=== PATIENT | female | born 1940 | race Caucasian/White ===

== ENCOUNTER 2016-11-07 09:02 | Emergency (ER) | payer MEDICARE, OTHER ==
[~2016-11-07] VITALS: Ht 167.6 cm; Wt 65.8 kg
[~2016-11-07 09:02] MED LIST changes: -IBUPROFEN400 MG ORAL
[2016-11-07] MEDS ORDERED: IBUPROFEN400 MG ORAL (10:28)
[2016-11-07 10:45] VITALS: BP 132/77
--- NOTE | 2016-11-07 13:30 | Emergency Room Report ---
History of Present Illness General Chief Complaint: Lower Extremity Injury Source: Patient, Medical Record Present Illness HPI 76-year-old female presents to ED for evaluation. Patient is here complaining of right knee pain and swelling. States that she traveled here from [place] yesterday and while walking to the airplane she twisted her right knee and heard a "pop". Patient states she notes 8/10 pain to her right knee, throbbing , worse with bending. Patient is able to bear weight but with some difficulty. Patient referred here by Dr. Cooney for evaluation. Patient was here receiving a colonoscopy. No other aggravating or relieving factors. Denies any other associated symptoms Allergies: Coded Allergies: NITROFURANTOIN (Verified Allergy, Mild, 07/23/13) HIVES SULFA (SULFONAMIDE ANTIBIOTICS) (Verified Allergy, Mild, 07/23/13) HIVES SULFISOXAZOLE (Verified Allergy, Mild, 07/23/13) HIVES Patient History Past Medical History: none Past Surgical History: other - carvalho pouch Pertinent Family History: none Social History: Denies: alcohol use, drug use, smoking Immunizations: UTD Reviewed Nursing Documentation: PMH: Agreed, PSxH: Agreed Nursing Documentation-PMH Hx Cardiac Problems: Yes - heart murmur at Hx Cancer: Yes - colon Hx Gastrointestinal Problems: Yes - carvalho pouch Hx Neurological Problems: No Review of Systems All Other Systems: negative except mentioned in HPI Physical Exam Vital Signs Date Time Temp Pulse Resp B/P Pulse Ox O2 Delivery O2 Flow Rate FiO2 4/17 09:16 98.2 72 18 132/77 96 Room Air Sp02 EP Interpretation: reviewed, normal General Appearance: no apparent distress, alert, GCS 15, non-toxic Head: normocephalic ENT: normal ENT inspection Neck: normal inspection, full range of motion Respiratory: normal inspection Cardiovascular #1: normal inspection Gastrointestinal: other - carvalho pouch Rectal: deferred Genitourinary: no CVA tenderness Musculoskeletal: swelling - R knee Neurologic: alert, oriented x3, responsive, motor strength/tone normal, sensory intact, speech normal Psychiatric: normal inspection Skin: normal inspection Lymphatic: normal inspection Procedures Splinting Splinting : Consent: Verbal Pre-Made Type: knee immobilizer Pre-Proc Neuro Vasc Exam: normal Post-Proc Neuro Vasc Exam: normal Patient Tolerated: Well Complications: None Medical Decision Making Diagnostic Impression: Primary Impression: Knee sprain Qualified Codes: S83.91XA - Sprain of unspecified site of right knee, initial encounter ER Course Hospital Course 76-year-old F presents to ED complaining of R knee pain/swelling s/p twisting motion in knee Differential diagnoses include: Fracture, dislocation, sprain, contusion Clinical course Patient placed on stretcher. After initial history and physical, I ordered pain medications and Xrays of R knee Xrays prelim read shows no acute fracture/dislocation. placed in knee immobilizer, given crutches Diagnosis - knee sprain Stable and discharged to home with prescription for Motrin. apply ice, keep elevated. weight bear as tolerated. Followup with PMD. Return to ED if symptoms recur or worsen Other X-Ray Diagnostic Results Other X-Ray Diagnostic Results : X-Ray Ordered: R knee EP Interpretation: Yes Findings: no fractures, no dislocation, no soft tissue swelling Number of Views: 3 Last Vital Signs Date Time Temp Pulse Resp B/P Pulse Ox O2 Delivery O2 Flow Rate FiO2 11/07/16 10:45 98.2 72 18 132/77 96 Room Air Status: improved Disposition: HOME, SELF-CARE Condition: Stable Scripts Ibuprofen* (MOTRIN*) 400 Mg Tablet 400 MG ORAL Q8H, #30 TAB 0 Refills Prov: ERICK PAYNE M.D. 11/07/16 Patient Instructions: Knee Sprain, [id number] ERICK PYANE M.D. Nov 07, 2016 13:30
--- NOTE | 2016-11-07 15:42 | Diagnostic Imaging Report ---
Indications: PAIN Technique: Three views of the right knee Comparison: None Findings: No acute fractures. No dislocations. Joint spaces are preserved. No radiopaque foreign body. Normal mineralization. Impression: No acute process
== END 2016-11-07 10:45 | disposition home or self-care (01) ==
LOC: EMR 09:50
DX: S83.91XA Sprain of unspecified site of right knee, initial encounter (principal); Z85.038 Personal history of other malignant neoplasm of large intestine; Z88.8 Allergy status to other drugs, medicaments and biological substances; Z88.2 Allergy status to sulfonamides; X50.1XXA Overexertion from prolonged static or awkward postures, initial encounter; Y92.520 Airport as the place of occurrence of the external cause; Y99.8 Other external cause status
CPT/HCPCS: 29530; 99283

== ENCOUNTER → 2016-11-07 | Day surgery (SDC) | payer MEDICARE, OTHER ==
--- NOTE | 2016-11-06 16:48 | Pre-op HX & Phy Repo 2 SIG ---
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 In 1984 because she developed dysplasia in other areas of the colon she underwent proctocolectomy with creation of a Kock pouch. She intubates two to four times per day and irrigates every time and uses a 30-Samoan silicone catheter. She has had a few episodes over the years of pouchitis, which resolved without any treatment. She has frequent episodes of difficulty with intubation of her pouch and some spasm that she is able to overcome, but this has become progressively more difficult at times. Endoscopy of her Kock pouch performed on July 2013 revealed angulation and redundancy of the access segment with a normal pouch. She is scheduled to undergo follow up endoscopy of the pouch because of the increasing difficulty inserting her drainage catheter. OPERATIONS: In addition to the above, she has undergone DENISE and BSO in 1997, resection of a benign left breast tumor years ago, and tonsillectomy as a child, and laparoscopic cholecystectomy 2014. MEDICATIONS: Vitamin B12 and iron replacement. ALLERGIES: Sulfa, Macrodantin, and Gantrisin. PHYSICAL EXAMINATION: VITAL SIGNS: The patient is 5 foot 6 inches and approximately 160 pounds. [place] and will be examined upon arrival and dictated separately. ABDOMEN: On previous examination, the abdomen is soft with a long midline scar. There is weakness of the right side of the abdomen with slight elevation of the stoma of the pouch consistent with a possible or probable parastomal hernia. IMPRESSION: 1. Malfunctioning Kock pouch continent ileostomy with increasing difficulty with intubation. 2. History of carcinoma of the colon and multiple areas of dysplasia. 3. Status post multiple abdominal operations. 3.1. 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 3.2. Proctocolectomy and creation of Kock pouch in 1984. 3.3. Total abdominal hysterectomy and bilateral salpingo-oophorectomy in 1997 4.3 Laparoscopic cholecystectomy 2014 DISCUSSION: The patient is going to undergo pouch endoscopy, which does not require any anesthesia or sedation. I have discussed the nature of the endoscopy, which she has been through before as indicated above, options and risks; she understands and agrees to proceed. Yordy Cooney M.D. DR: COOPER JOB#: [id number] CC: DORINA
[~2016-11-07] VITALS: Ht 167.6 cm; Wt 65.8 kg
[~2016-11-07] MED LIST: FERROUS SULFAT325 MG ORAL; FOLIC ACID INJ; IBUPROFEN400 MG ORAL; VIT B INJ; VITAMIN D1000 UNI1 ORAL
--- NOTE | 2016-11-07 07:42 | Pre-Procedure Note/Attestation ---
Pre-Procedure Note/Attestation Complete Prior to Procedure Planned Procedure: not applicable Procedure Narrative: Kock Pouch endoscopy Indications for Procedure Pre-Operative Diagnosis: Malfunctioning Kock Pouch Attestation I attest that I discussed the nature of the procedure; its benefits; risks and complications; and alternatives (and the risks and benefits of such alternatives ), prior to the procedure, with the patient (or the patient's legal sales representative printing). I attest that, if there was a reasonable possibility of needing a blood transfusion, the patient (or the patient's legal sales representative printing) was given the [facility] standardized written summary, pursuant to the Guru Kuldip Blood Safety Act ([place] Health and Safety Code # 1645, as amended). I attest that I re-evaluated the patient just prior to the surgery and that there has been no change in the patient's H&P, except as documented below: none REED MORFIN Nov 07, 2016 07:42
[2016-11-07 08:10] VITALS: BP 150/85
--- NOTE | 2016-11-07 08:32 | Brief Operative Note ---
Immediate Post Operative Note Operative Note Pre-op Diagnosis: Malfunctioning Kock Pouch Procedure: Kock pouch endoscopy Post-op Diagnosis: redundant, angulated access segment of Kock Pouch Post-op Diagnosis: same as pre-op Findings: consistent w/pre-op dx studies Surgeon: chris Anesthesia: other - none Specimen: none Complications: none Condition: stable Fluids: none Estimated Blood Loss: none Drains: none Implant(s) used?: No REED MORFIN Nov 07, 2016 08:32
[2016-11-07 08:35] VITALS: BP 122/67
--- NOTE | 2016-11-07 19:17 | Procedure Note ---
DATE OF PROCEDURE: 11/07/2016 ENDOSCOPIST: Yordy Cooney M.D. ANESTHESIA: None. SEDATION: None. PRE-ENDOSCOPY DIAGNOSES: 1. Malfunctioning Kock pouch with difficulty with intubation. 2. Status post multiple abdominal operations. 2.1. Partial colectomy for carcinoma of the cecum 1982. 2.2. Proctocolectomy and Kock pouch for diffuse colon dysplasia 1984 2.3. Total abdominal hysterectomy and bilateral salpingo-oophorectomy 1997 2.4. Laparoscopic cholecystectomy 2014. POST-ENDOSCOPY DIAGNOSES: 1. Malfunctioning Kock pouch with difficulty with intubation. 2. Status post multiple abdominal operations. 2.1. Partial colectomy for carcinoma of the cecum 1982. 2.2. Proctocolectomy and Kock pouch for diffuse colon dysplasia 1984 2.3. Total abdominal hysterectomy and bilateral salpingo-oophorectomy 1997 2.4. Laparoscopic cholecystectomy 2014. ENDOSCOPY PERFORMED: Kock pouch endoscopy. FINDINGS: A redundant and angulated access segment with two marked angulations with a normal pouch and well-formed nipple valve. DESCRIPTION OF PROCEDURE: Additional history is obtained as the patient has arrived from out of town. Since her endoscopy in July 2013 she has had mild but progressive increasing difficulty catheterizing her pouch with her 30-Equatorial [place]inean Medena catheter and she sees blood coming from the stoma after each intubation. On physical examination, the abdomen is soft with a left paramedian incision just to the left of midline. The stoma of the Kock pouch is low in the right lower quadrant and well formed. There is weakness of the entire right lower quadrant musculature without a definite herniation. There is no hernia of the paramedian incision. Using a GIF-P140 endoscope, the stoma was entered. There was a marked angulation within the initial 2 cm and then the tract was straight until there was another marked angulation at approximately 7 to 8 cm. The distance to the tip of the nipple valve was 11 cm, which in this patient should be approximately 8 cm at most. The pouch was quite distensible. The mucosa appeared normal. The afferent bowel appeared normal. Retroflexed views revealed a well-formed nipple valve. Withdrawal views confirmed the above findings. After removing the endoscope, I was able to manipulate a 28-Equatorial [place] Garcia into the pouch with some mild difficulty, evacuating retained air and contents. I have provided the patient with a 24-Equatorial [place] Medena catheter in case she has inability to intubate with her standard 30-Equatorial Guinean catheter. I had a full discussion with the patient and her regarding the nature of the problem and the need for surgical revision to include laparotomy and revision of the stoma and access segment. They will determine when to proceed based on their schedule. The patient tolerated the endoscopy well. Yordy Cooney M.D. DR: MARIANA JOB#: [id number] CC: DORINA
== END | disposition home or self-care (01) ==
LOC: GAS 07:30
DX: K94.13 Enterostomy malfunction (principal); Y83.8 Other surgical procedures as the cause of abnormal reaction of the patient, or of later complication, without mention of misadventure at the time of the procedure; Y92.89 Other specified places as the place of occurrence of the external cause; Z85.038 Personal history of other malignant neoplasm of large intestine; Z90.49 Acquired absence of other specified parts of digestive tract; Z90.710 Acquired absence of both cervix and uterus; Z90.722 Acquired absence of ovaries, bilateral; Z90.79 Acquired absence of other genital organ(s); Z88.3 Allergy status to other anti-infective agents; Z88.2 Allergy status to sulfonamides; Z88.8 Allergy status to other drugs, medicaments and biological substances

== ENCOUNTER 2016-12-25 08:52 | Inpatient (IN) | payer MEDICARE, OTHER ==
--- NOTE | 2016-12-24 12:46 | Pre-op HX & Phy Repo 2 SIG ---
DATE OF ADMISSION: 12/25/2016 HISTORY OF PRESENT ILLNESS: The patient is a 76-year-old female, in overall good health with a malfunctioning Kock pouch continent ileostomy with increasing difficulty with intubation. The patient has a past history of carcinoma of the cecum and underwent partial colectomy in 1982 followed by proctocolectomy with creation of a Kock pouch for diffuse colon dysplasia in 1984. The patient usually intubates her pouch two to four times per day, irrigating every time using a 30-Kazakh Medena silicone catheter. Episodes of pouchitis had been infrequent over the years resolving without treatment. The patient has had difficulty with intubation for several years and underwent endoscopy in 2012 revealing angulation and redundancy of the access segment with a normal pouch. Recently, she has had progressive difficulty inserting her catheter and has blood coming from the stoma after each intubation. She underwent endoscopy on 11/07/2016 revealing a redundant and angulated access segment with 2 marked angulations with a normal pouch and well-formed nipple valve. MEDICATIONS: Vitamin B12 and iron replacement. ALLERGIES: Sulfa, Macrodantin, and Gantrisin. OPERATIONS: In addition to the above, she has undergone DENISE and BSO in 1997, resection of a benign left breast tumor many years ago, tonsillectomy as a child, and laparoscopic cholecystectomy in 2014. PHYSICAL EXAMINATION: GENERAL: The patient is 5 foot inches and approximately 160 pounds. [place] and will be examined upon arrival and dictated separately. ABDOMEN: Recent examination at the time of her endoscopy last month revealed the abdomen to be soft with a midline incision. The stoma of the Kock pouch is low in the right lower quadrant and well formed. There was weakness of the entire right lower quadrant abdominal musculature without definite herniation and no herniation of the midline incision. IMPRESSION: 1. Malfunctioning Kock pouch continent ileostomy with increasing difficulty with intubation and bleeding. 2. History of carcinoma of the colon and multiple areas of dysplasia. 3. STATUS POST MULTIPLE ABDOMINAL OPERATIONS: 3.1. Partial colectomy for carcinoma of the cecum 1982. 3.2. Proctocolectomy with creation of Kock pouch for diffuse colon dysplasia in 1984. 3.3. Total abdominal hysterectomy and bilateral salpingo-oophorectomy in 1997. 3.4. Laparoscopic cholecystectomy, 2014. PLAN: The patient will be admitted and undergo insertion of a dual lumen PICC line, bowel prep, intravenous hydration, and will receive intravenous antibiotics and preoperative subcutaneous heparin. Upon admission, a 28-Kazakh Garcia catheter will be inserted into her pouch and connected to a gravity drainage bag for continuous decompression with every three hour flushing by the nursing staff. I had a full discussion with the patient regarding the nature of her condition, the nature of the surgery, indications, alternatives, options, and risks. I have discussed the surgery to include laparotomy with revision of the stoma and access segment and testing of the pouch with possible revision of the valve of the Kock pouch as well. I have discussed the general risks of surgery including bleeding, infection, adhesions that could cause bowel obstruction and require more surgery, herniation, deep vein thrombosis despite prophylaxis, anesthetic reactions, etc. I have discussed the specific risks, including the potential need for catheter gastrostomy and the risks thereof, including recurrent difficulties with the pouch that could lead to more surgery including fistula, slipped valve, or stoma problems etc. I will have another detailed discussion when [place] and all questions will be answered. Yordy Cooney M.D. DR: Jeana JOB#: [id number] CC: DORINA
[~2016-12-25] VITALS: Ht 167.6 cm; Wt 66.7 kg
[~2016-12-25 08:52] MED LIST changes: +IBUPROFEN400 MG ORAL
[2016-12-25 09:50] VITALS: BP 145/92
[2016-12-25] MEDS ORDERED: Heparin 5000 units/ml inj SUBQ ONE (10:00)
[2016-12-25 10:47] LABS: APPEARANCE,URINE CLEAR; KETONES,URINE 2+ (NEGATIVE); LEUKOCYTE ESTERASE ,URINE NEGATIVE (NEGATIVE); NITRITE,URINE NEGATIVE (NEGATIVE); PH,URINE 5 (4.5-8.0); PROTEIN,URINE NEGATIVE (NEGATIVE); UROBILINOGEN,URINE NORMAL MG/DL (0.0-1.0)
[2016-12-25 11:09] LABS: BASOPHILS % (AUTO) 1.4 % (0.0-2.0); EOSINOPHILS % (AUTO) 1.5 % (0.0-3.0); LYMPHOCYTES % (AUTO) 17.7 % (20.0-45.0); MEAN CORPUSCULAR HEMOGLOBIN 31.6 PG (27.0-31.0); MEAN CORPUSCULAR HGB CONC 32.8 G/DL (32.0-36.0); MEAN CORPUSCULAR VOLUME 96 FL (80-99); MEAN PLATELET VOLUME 7.2 FL (6.5-10.1); MONOCYTES % (AUTO) 14.9 % (1.0-10.0); NEUTROPHILS % (AUTO) 64.5 % (45.0-75.0); PLATELET COUNT 184 K/UL (150-450); RED CELL DISTRIBUTION WIDTH 12.6 % (11.6-14.8); WHITE BLOOD COUNT 3.8 K/UL (4.8-10.8)
[2016-12-25] MEDS ORDERED: Heparin 2000 units/Ns 1000ml IV ONE (11:15)
[2016-12-25] MEDS ORDERED: Lidocaine 1% Plain 30 ml INJ ONE (11:15)
[2016-12-25] MEDS: Dyna-Hex 2% Top Sol 8oz TOPIC SCH (11:17)
[2016-12-25 11:22] LABS: PROTHROMBIN TIME 10.3 SEC (9.30-11.50)
[2016-12-25 11:28] LABS: ALANINE AMINOTRANSFERASE 16 U/L (3-33); ALBUMIN/GLOBULIN RATIO 2.3 (1.0-2.7); ANION GAP 14 (5-15); ASPARTATE AMINO TRANSFERASE 20 U/L (5-40); CALCIUM 9.3 mg/dL (8.6-10.2); CARBON DIOXIDE 28 mEQ/L (20-30); CHLORIDE 97 mEQ/L (98-107); CREATININE 0.8 mg/dL (0.5-0.9); HEMOLYSIS 5; POTASSIUM 3.7 mEQ/L (3.4-4.9); SODIUM 139 mEQ/L (135-145); TOTAL PROTEIN 6.1 g/dL (6.6-8.7)
[2016-12-25 11:40] LABS: BILIRUBIN,DIRECT 0.2 mg/dL (0.1-0.3)
[2016-12-25] MEDS ORDERED: Neomycin Sulfate 500mg Tab ORAL SCH (12:00)
[2016-12-25 12:26] VITALS: BP 105/63
[2016-12-25] MEDS: Neomycin Sulfate 500mg Tab ORAL SCH ×3 (12:37→19:48)
--- NOTE | 2016-12-25 14:14 | Diagnostic Imaging Report ---
Indication: Shortness of breath Technique: One view of the chest Comparison: none Findings: The lungs and pleural spaces are clear. The heart size is normal. There is a left arm PICC in good position. Impression: No acute process
--- NOTE | 2016-12-25 15:42 | General Progress Note ---
Progress Note Progress Note H&P dictated. PIC line in place, bowel prep and IV hydration, plus indwelling Kock Pouch catheter to continuous drainage. Abdomen soft, weakness of RLQ musculature without discrete hernia. Labs all satisfactory except WBC 3800. Full discussion with patient and regarding the surgery, options, risks; all questions answered. Plan IV antibiotics and SQ heparin pre-op REED MORFIN December 25, 2016 15:42
--- NOTE | 2016-12-25 15:51 | Anethesia Preoperative Eval ---
Anesthesia Pre-op PMH/ROS General Date of Evaluation: December 25, 2016 Time of Evaluation: 15:46 Anesthesiologist: Candida ASA Score: ASA 2 Mallampati Score Class I : Soft palate, uvula, fauces, pillars visible Class II: Soft palate, uvula, fauces visible Class III: Soft palate, base of uvula visible Class IV: Only hard plate visible Mallampati Classification: Class II Surgeon: Ivet Diagnosis: Malfunctioning Continent pouch Surgical Procedure: Ex laparotomy revision of continent pouch Anesthesia History: none Family History: no anesthesia problems Allergies: Coded Allergies: NITROFURANTOIN (Verified Allergy, Mild, 07/23/13) HIVES SULFA (SULFONAMIDE ANTIBIOTICS) (Verified Allergy, Mild, 07/23/13) HIVES SULFISOXAZOLE (Verified Allergy, Mild, 07/23/13) HIVES Past Medical History Cardiovascular: Reports: HTN - mild, Denies: CAD, HI, arrhythmia, other, valve dz Pulmonary: Denies: COPD, [place], asthma, other Gastrointestinal/Genitourinary: Reports: GERD, other - s/p total colectomy, Denies: CRI, ESRD Neurologic/Psychiatric: Denies: CVA, TIA, dementia, depression/anxiety, other Endocrine: Denies: DM, hypothyroidism, other, steroids HEENT: Denies: EGEGIK (L), EGEGIK (R), cataract (L), cataract (R), glaucoma, other Hematology/Immune: Reports: anemia - mild, Denies: DVT, bleeding disorder, other Musculoskeletal/Integumentary: Denies: DDD, DJD, OA, RA, edema, other PMH Narrative: as above PSxH Narrative: Multiple abdominal Sx + lap. cholecystectomy DENISE Anesthesia Pre-op Phys. Exam Physician Exam Last Vital Signs Date Time Temp Pulse Resp B/P Pulse Ox O2 Delivery O2 Flow Rate FiO2 12/25/16 12:26 98.1 109 18 105/63 95 Room Air Constitutional: NAD Neurologic: CN 2-12 intact Cardiovascular: RRR, no M/R/G Respiratory: CTA Gastrointestinal: S/NT/ND Airway Exam Mallampati Score: Class II MO: full Neck: flexible ROM: full Teeth: intact Dentures: no lower, no upper Anesthesia Pre-op A/P Labs Hematology Test 12/25/16 10:45 White Blood Count 3.8 K/UL (4.8-10.8) L Red Blood Count 4.50 M/UL (4.20-5.40) Hemoglobin 14.2 G/DL (12.0-16.0) Hematocrit 43.4 % (37.0-47.0) Mean Corpuscular Volume 96 FL (80-99) Mean Corpuscular Hemoglobin 31.6 PG (27.0-31.0) H Mean Corpuscular Hemoglobin Concent 32.8 G/DL (32.0-36.0) Red Cell Distribution Width 12.6 % (11.6-14.8) Platelet Count 184 K/UL (150-450) Mean Platelet Volume 7.2 FL (6.5-10.1) Neutrophils (%) (Auto) 64.5 % (45.0-75.0) Lymphocytes (%) (Auto) 17.7 % (20.0-45.0) L Monocytes (%) (Auto) 14.9 % (1.0-10.0) H Eosinophils (%) (Auto) 1.5 % (0.0-3.0) Basophils (%) (Auto) 1.4 % (0.0-2.0) Coagulation Test 12/25/16 10:45 Prothrombin Time 10.3 SEC (9.30-11.50) Prothromb Time International Ratio 1.0 (0.9-1.1) Activated Partial Thromboplast Time 27 SEC (23-33) Chemistry Test 12/25/16 10:45 Sodium Level 139 mEQ/L (135-145) Potassium Level 3.7 mEQ/L (3.4-4.9) Chloride Level 97 mEQ/L (98-107) L Carbon Dioxide Level 28 mEQ/L (20-30) Anion Gap 14 (5-15) Blood Urea Nitrogen 14 mg/dL (7-23) Creatinine 0.8 mg/dL (0.5-0.9) Estimat Glomerular Filtration Rate mL/min (>60) Glucose Level 84 mg/dL (74-106) Calcium Level 9.3 mg/dL (8.6-10.2) Total Bilirubin 1.1 mg/dL (0.0-1.2) Direct Bilirubin 0.2 mg/dL (0.1-0.3) Aspartate Amino Transf (AST/SGOT) 20 U/L (5-40) Alanine Aminotransferase (ALT/SGPT) 16 U/L (3-33) Alkaline Phosphatase 47 U/L (35-104) Total Protein 6.1 g/dL (6.6-8.7) L Albumin 4.3 g/dL (3.5-5.2) Globulin 1.8 g/dL Albumin/Globulin Ratio 2.3 (1.0-2.7) Studies Pre-op Studies: EKG - NSR Risk Assessment & Plan Assessment: ASA 2 Plan: GA with ETT avoid benzodiazepine patients request Status Change Before Surgery: No Pre-Antibiotics Drug: as scheduled LAQUITA MCGILL M.D. December 25, 2016 15:51
[2016-12-25 16:00] VITALS: BP 135/77
[2016-12-25] MEDS: D5 1/2NS w/KCl 20mEq 1,000 ML IV SCH (17:46)
[2016-12-25 20:00] VITALS: BP 132/82
[2016-12-25] MEDS ORDERED: Zolpidem 5mg tab ORAL PRN (21:00)
[2016-12-25] MEDS: metroNIDAZOLE 500mg 100 ML IV SCH (23:37)
[2016-12-25] MEDS: Ampicillin/Sulbactam Sod 3 GM in NS 110 ML IV SCH (23:37)
[2016-12-26] VITALS (12 sets, daily range): BP systolic 125–148; BP diastolic 55–92
[2016-12-26] MEDS: D5 1/2NS w/KCl 20mEq 1,000 ML IV SCH (04:06)
[2016-12-26] MEDS: Dyna-Hex 2% Top Sol 8oz TOPIC SCH ×2 (06:00→10:30)
[2016-12-26] MEDS: metroNIDAZOLE 500mg 100 ML IV SCH ×3 (06:16→17:00)
[2016-12-26] MEDS: Ampicillin/Sulbactam Sod 3 GM in NS 110 ML IV SCH ×3 (06:16→17:01)
[2016-12-26] MEDS ORDERED: Heparin 5000 units/ml inj SUBQ ONE ×2 (09:00→10:00)
--- NOTE | 2016-12-26 09:47 | Pre-Procedure Note/Attestation ---
Pre-Procedure Note/Attestation Complete Prior to Procedure Planned Procedure: not applicable Procedure Narrative: Laparotomy and revision Kock Pouch and stoma, possible gastrostomy Indications for Procedure Pre-Operative Diagnosis: Malfunctioning Kock Pouch Attestation I attest that I discussed the nature of the procedure; its benefits; risks and complications; and alternatives (and the risks and benefits of such alternatives ), prior to the procedure, with the patient (or the patient's legal business process representative). I attest that, if there was a reasonable possibility of needing a blood transfusion, the patient (or the patient's legal business process representative) was given the [place] [facility] standardized written summary, pursuant to the Guru Kuldip Blood Safety Act ([place] Health and Safety Code # 1645, as amended). I attest that I re-evaluated the patient just prior to the surgery and that there has been no change in the patient's H&P, except as documented below: none REED MORFIN December 26, 2016 09:47
[2016-12-26] MEDS ORDERED: Bacitracin 50000 Units Vial ONE (09:55)
[2016-12-26] MEDS ORDERED: LR 1000ml 1,000 ML IVLG SCH (10:28)
[2016-12-26] MEDS ORDERED: Metoclopramide 10mg/2ml Inj IVP PRN ×2 (10:30→22:15)
[2016-12-26] MEDS ORDERED: Norco 7.5mg/325mg tab ORAL PRN (10:30)
[2016-12-26] MEDS ORDERED: Norco 5mg/325mg tab ORAL PRN (10:30)
[2016-12-26] MEDS ORDERED: Oxycodone/Acetaminophen 5-325 ORAL PRN (10:30)
[2016-12-26] MEDS ORDERED: Atropine Inj 1mg/10ml Syr IV PRN (10:30)
[2016-12-26] MEDS ORDERED: Ketorolac 60mg Inj IV PRN (10:30)
[2016-12-26] MEDS ORDERED: DiphenhydrAMINE 50mg/ml Inj IVP PRN ×2 (10:30→14:00)
[2016-12-26] MEDS ORDERED: fentaNYL 100 mcg/2 mL IV PRN (10:30)
[2016-12-26] MEDS ORDERED: Midazolam 2mg/2ml Inj IVP PRN (10:30)
[2016-12-26] MEDS ORDERED: Meperidine 25mg/0.5ml Inj IV PRN (10:30)
[2016-12-26] MEDS ORDERED: LORazepam Inj 2mg/ml 1ml IV PRN (10:30)
[2016-12-26] MEDS ORDERED: Hydromorphone 0.5mg/0.5ml inj IVP PRN (10:30)
[2016-12-26] MEDS ORDERED: Ketorolac 30mg Inj IV PRN (10:30)
--- NOTE | 2016-12-26 10:30 | Immediate Post-Op Evaluation ---
Immediate Post-Op Evalulation Immediate Post-Op Evalulation Procedure: Revision Kock Pouch Date of Evaluation: December 26, 2016 Time of Evaluation: 13:29 IV Fluids: 600 LR Blood Products: 0 Estimated Blood Loss: 30 Urinary Output: 200 Blood Pressure Systolic: 137 Blood Pressure Diastolic: 78 Pulse Rate: 84 Respiratory Rate: 16 O2 Sat by Pulse Oximetry: 100 Temperature (Fahrenheit): 97 Pain Score (1-10): 2 Nausea: No Vomiting: No Complications 0 Patient Status: awake, reacts, patent, extubated, none Hydration Status: adequate Dru Grams Unasyn, 500 mg Flagyl IV Given Within 1 Hr of Incision: Yes Time Given: 12:00 Sam Cueto MD December 26, 2016 10:30
[2016-12-26] MEDS ORDERED: NS Irrig 1000ml ONE (10:53)
[2016-12-26] MEDS ORDERED: Tubing IV Secondary IV ONE (10:53)
--- NOTE | 2016-12-26 10:55 | Diagnostic Imaging Report ---
Indications: Needs long-term IV access Technique: Ultrasound confirms patent compressible left basilic vein. Total sterile technique, including sterile probe cover and sterile gel, hat, mask,, sterile gown, large sterile drape, and preparation with 2% chlorhexidine utilized. Local anesthesia with 1% lidocaine. Under real-time ultrasound guidance, puncture basilic vein using 21-gauge needle, documented and archived, passage 0.018 guidewire under direct fluoroscopy, which was used to determine appropriate catheter length, exchange for 5 Portuguese peel-away sheath. 5 Portuguese Bard dual-lumen power PICC cut to 45 cm. It was inserted through the peel-away sheath. Peel-away sheath and guidewire removed. Catheter fixed to the skin. Both catheter ports aspirated and flushed. Patient tolerated procedure well, without immediate complication. Digital radiograph documents satisfactory catheter tip position, at the cavoatrial junction. Total fluoroscopy time 0.4 minutes. Total dose area product 6.7 dGycm2 Impression: Successful placement of left arm PICC under sonographic and fluoroscopic guidance, as described above.
[2016-12-26] MEDS ORDERED: Glycopyrrolate 0.2mg/ml 1ml Vial ONE (11:00)
[2016-12-26] MEDS ORDERED: Propofol 10mg/ml 20ml IV ONE (11:00)
[2016-12-26] MEDS ORDERED: Lidocaine 1% Plain 30 ml INJ ONE (11:00)
[2016-12-26] MEDS ORDERED: Nimbex 2mg/ml Inj 10ML IVP ONE (11:00)
[2016-12-26] MEDS ORDERED: Midazolam 2mg/2ml Inj ONE (11:00)
[2016-12-26] MEDS ORDERED: LR 1000ml ONE (11:00)
[2016-12-26] MEDS ORDERED: fentaNYL 250mcg/5ml ONE (11:00)
[2016-12-26] MEDS ORDERED: Dexamethasone 4mg/ml vial ONE (11:00)
[2016-12-26] MEDS ORDERED: NS Irrig 2000ml IRRIG ONE (11:00)
[2016-12-26] MEDS ORDERED: Neostigmine 1mg/ml 10ml Inj ONE (11:00)
[2016-12-26] MEDS ORDERED: Propofol 10mg/ml 100ml btl IV ONE (11:00)
[2016-12-26] MEDS ORDERED: Lidocaine 1% MPF 10mg/ml 5ml ONE (11:00)
[2016-12-26] MEDS ORDERED: Sterile Water Irrig 1000ml IRRIG ONE (11:00)
[2016-12-26] MEDS ORDERED: Acetaminophen (Non formulary) 1,000 MG/100 ML ML IV ONE (11:15)
[2016-12-26] MEDS ORDERED: Ampicillin/Sulbactam Sod 3 GM in NS 110 ML IV SCH (12:00)
[2016-12-26] MEDS ORDERED: metroNIDAZOLE 500mg 100 ML IV SCH (12:00)
[2016-12-26] MEDS ORDERED: Acetaminophen 650mg/20.3ml ORAL PRN (13:15)
[2016-12-26] MEDS ORDERED: LORazepam 1mg tab SL PRN ×2 (13:15)
--- NOTE | 2016-12-26 13:16 | Brief Operative Note ---
Immediate Post Operative Note Operative Note Pre-op Diagnosis: Malfunctioning Kock Pouch Procedure: laparotomy and revision Kock Pouch stoma Post-op Diagnosis: same Post-op Diagnosis: same as pre-op Findings: consistent w/pre-op dx studies Surgeon: chris Duck Operator: curt Anesthesiologist: reji Anesthesia: general Specimen: yes - Kock pouch stoma; mesh from Kock Pouch Complications: none Condition: stable Fluids: see anesthesia record Estimated Blood Loss: minimal Drains: other - 28 Garcia to Kock Pouch Implant(s) used?: No REED MORFIN December 26, 2016 13:16
[2016-12-26] MEDS ORDERED: Naloxone 0.4mg/ml Inj IVP PRN (14:00)
[2016-12-26] MEDS ORDERED: Rate Change PCA 1 Each MISC PRN (14:00)
[2016-12-26] MEDS ORDERED: PCA HYDROmorphone 1mg/ml 30 ML IV PRN (14:00)
--- NOTE | 2016-12-26 14:16 | Pre-op HX & Phy Repo 2 SIG ---
DATE OF ADMISSION: 12/25/2016 HISTORY OF PRESENT ILLNESS: [place] now examined. 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 She also states that she has mid abdominal pain, sometimes to the left of midline and sometimes to the right radiating around her side of unknown etiology. PHYSICAL EXAMINATION: GENERAL: She is well developed and well nourished, in no distress. VITAL SIGNS: Within normal limits. HEENT: Within normal limits. LUNGS: Clear. HEART: Regular rhythm. BREASTS: Without masses. ABDOMEN: Soft, long midline incision. Stoma of the Kock pouch is low in the right lower quadrant. There is weakness of the entire musculature of the right lower quadrant, but no discrete hernia. PELVIC: Status post hysterectomy. RECTAL: Status post proctectomy. EXTREMITIES: Without edema. Pulses 2+ femoral to pedal bilateral NEUROLOGIC: Physiologic. IMPRESSION: 1. Malfunctioning Kock pouch with difficulty with intubation. 2. Status post multiple abdominal operations. 3. 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 4. 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 5. Total abdominal hysterectomy and bilateral salpingo-oophorectomy in 1997 6. Laparoscopic cholecystectomy in 2014. PLAN AND DISCUSSION: I had a full discussion with the patient and her regarding the nature of her condition, indications for surgery, and the surgical alternatives. These include laparotomy with takedown of the stoma and resecting the redundant, elongated, and angulated access segment bringing the pouch back up to the abdominal wall and testing of the pouch intraoperatively. As endoscopy has revealed a well-formed nipple valve and she has had no incontinence, it is unlikely we would need to do a revision of her valve or create a new valve preserving her existing pouch with possible relocation of the stoma to the left lower quadrant. I have also discussed the potential need for gastrostomy depending on how much difficulty there is mobilizing small bowel loops from adhesions and what procedure is actually done. I have discussed the general and specific risks of the operation including potential gastrostomy, including bleeding, infection, injury to adjacent structures or organs, and recurrent difficulties with the pouch including fistula or slipped valve or other difficulties that could require additional surgery. All questions have been answered. The patient understands and agrees to proceed. Yordy Cooney M.D. DR: ELIS JOB#: [id number] CC: DORINA
[2016-12-26] MEDS: D5 1/4NS w/KCl 20mEq 1,000 ML IV SCH (16:55)
[2016-12-26] MEDS: PCA shift volume MISC SCH (19:00)
[2016-12-26] MEDS ORDERED: Metoclopramide 10mg/2ml Inj IVP STA (22:11)
--- NOTE | 2016-12-26 22:32 | Operative Note - Dictated ---
DATE OF OPERATION: 12/26/2016 SURGEON: Yordy Cooney M.D. MEDICAL ARTIST SURGEON: Tomas Wells M.D. ANESTHESIOLOGIST: Sam Cueto M.D. TYPE OF ANESTHESIA: General endotracheal. PREOPERATIVE DIAGNOSES: 1. 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 History of colon cancer. 3. Status post multiple abdominal operations. 3.1. 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 3.2. 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 Total abdominal hysterectomy and bilateral salpingo-oophorectomy in 1997 3.4. Laparoscopic cholecystectomy in 2015. POSTOPERATIVE DIAGNOSES: 1. 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 History of colon cancer. 3. Status post multiple abdominal operations. 3.1. 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 3.2. 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 Total abdominal hysterectomy and bilateral salpingo-oophorectomy in 1997 3.4. Laparoscopic cholecystectomy in 2014. OPERATION PERFORMED: Laparotomy with revision of Kock pouch stoma and access segment. DESCRIPTION OF PROCEDURE: The patient was taken to the operating room and under general endotracheal anesthesia with sequential compression device stockings in place and having received preoperative intravenous antibiotics and subcutaneous heparin, the patient was prepped and draped in the usual fashion with Garcia catheter in place. Initially, the stoma of the Kock pouch low in the right lower quadrant was covered with a Tegaderm. Previous midline incision was reopened from below the umbilicus to the pubis ultimately extended just above the umbilicus for exposure. There were no adhesions in the abdominal cavity, except for the upper abdomen, which was sealed with adhesions. I could palpate the pancreas and could not feel any abnormality, but could not assess completely nor could I assess the liver for her past history of cysts. The Kock pouch was readily elevated from the pelvis as were the small bowel loops and the afferent bowel. At the time the Kock pouch was created it was clear that a mesh probably Marlex mesh had been wrapped around the outer surface of the pouch at the junction with the access segment. This mesh had to be excised to do the manipulations needed. The stoma was circumscribed with a transversely oriented elliptical incision and dissected through the abdominal wall into the abdominal cavity bringing the stoma and access segment into the abdomen. The abdominal wall thickness was only 3 cm, but the access segment was approximately 9 cm long consistent with the preoperative endoscopy. A 28-Turkish Garcia was placed through the stoma into the pouch and the afferent bowel was manually occluded. The pouch was distended with 600 mL of saline. The catheter was removed and there was no incontinence. The catheter was reintroduced and the pouch decompressed. The site of the stoma had a large fascial opening and this was narrowed laterally with #0 Vicryl [id number] suture. Then, the posterior pouch was sutured to the musculo-peritoneum at the level of the stoma with interrupted 3-0 Vicryl sutures. Then the access segment and stoma brought through the abdominal wall and the anterior pouch was sutured to the peritoneum with 3-0 Vicryl sutures. I then narrowed the medial aspect of the peristomal incision with two interrupted 4-0 Monocryl subcuticular sutures. Then I placed the access segment on stretch and divided the mesentery at the level of the skin dividing between clamps ligating with 2-0 Vicryl. The redundant access segment was excised and the new stoma primarily matured utilizing 2-0 chromic locking suture full-thickness starting at the 3 o' clock and 9 o'clock positions. A very satisfactory stoma was achieved. It was well perfused. A 28-Turkish Garcia catheter readily entered the pouch and was positioned with the tip in the apex and the pouch placed into the pelvis with the bowel loops replaced anatomically. The Kock pouch catheter was sutured to the skin with two sutures of 2-0 silk. It was then flushed with saline and connected to a gravity drainage bag. The abdomen was inspected and hemostasis was secure. The midline incision was closed in one layer with continuous #1 Prolene starting at both ends and inverting the knots. Throughout the procedure, the abdominal wall had been protected with antibiotic soaked laps. Additional antibiotic irrigation was used now in the subcutaneous tissues and the skin was closed with monica. Dry sterile dressings were applied. Final sponge and needle counts were correct. The patient tolerated the procedure well and left the operating room in good condition. Yordy Cooney M.D. DR: DELILAH JOB#: [id number] CC: DORINA
[2016-12-27] VITALS: BP 117/62
[2016-12-27] MEDS: Ampicillin/Sulbactam Sod 3 GM in NS 110 ML IV SCH ×4 (00:14→17:28)
[2016-12-27] MEDS: metroNIDAZOLE 500mg 100 ML IV SCH ×4 (00:14→17:27)
[2016-12-27] MEDS: D5 1/4NS w/KCl 20mEq 1,000 ML IV SCH ×4 (03:10→21:14)
[2016-12-27 04:00] VITALS: BP 113/58
[2016-12-27] MEDS: Dyna-Hex 2% Top Sol 8oz TOPIC SCH (06:12)
--- NOTE | 2016-12-27 06:56 | General Progress Note ---
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 Chest clear, Cor - reg rhythm Abdomen soft, mild distention, incision clean, stoma pink Labs pending Urine output satisfactory; BCIR ileo small amount enteric Imp. Ileus Plan: NPO Mobilize ambulate BID f/u labs REED MORFIN December 27, 2016 06:56
[2016-12-27] MEDS: PCA shift volume MISC SCH ×2 (07:29→19:00)
[2016-12-27 08:00] VITALS: BP 110/58
[2016-12-27 08:00] LABS: MEAN CORPUSCULAR HEMOGLOBIN 32.1 PG (27.0-31.0); MEAN CORPUSCULAR HGB CONC 33.5 G/DL (32.0-36.0); MEAN CORPUSCULAR VOLUME 96 FL (80-99); MEAN PLATELET VOLUME 8.2 FL (6.5-10.1); PLATELET COUNT 159 K/UL (150-450); RED BLOOD COUNT 3.99 M/UL (4.20-5.40); RED CELL DISTRIBUTION WIDTH 12.3 % (11.6-14.8); WHITE BLOOD COUNT 12.1 K/UL (4.8-10.8)
[2016-12-27 08:11] LABS: ANION GAP 12 (5-15); CALCIUM 7.9 mg/dL (8.6-10.2); CARBON DIOXIDE 26 mEQ/L (20-30); CHLORIDE 103 mEQ/L (98-107); CREATININE 0.7 mg/dL (0.5-0.9); HEMOLYSIS 10; POTASSIUM 3.7 mEQ/L (3.4-4.9); SODIUM 141 mEQ/L (135-145)
--- NOTE | 2016-12-27 08:49 | 48 Hour Post Anesthesia Eval ---
Post Anesthesia Evaluation Procedure: Revision Kock Pouch Date of Evaluation: December 27, 2016 Time of Evaluation: 08:47 Blood Pressure Systolic: 116 0: 54 Pulse Rate: 72 Respiratory Rate: 20 Temperature (Fahrenheit): 97.6 O2 Sat by Pulse Oximetry: 98 Airway: patent Nausea: No Vomiting: No Pain Intensity: 3 Hydration Status: adequate Cardiopulmonary Status: stable Mental Status/LOC: patient returned to baseline Follow-up Care/Observations: n/a Post-Anesthesia Complications: none Follow-up care needed: N/A LAQUITA MCGILL M.D. December 27, 2016 08:49
[2016-12-27 11:31] LABS: BAND NEUTROPHILS % (MANUAL) 0 % (0-8); BASOPHILS % (MANUAL) 0 % (0-2); EOSINOPHILS % (MANUAL) 0 % (0-3); LYMPHOCYTES % (MANUAL) 4 % (20-45); NEUTROPHILS % (MANUAL) 89 % (45-75); PLATELET ESTIMATE ADEQUATE; PLATELET MORPHOLOGY NORMAL; TOTAL CELLS COUNTED 100
[2016-12-27 12:00] VITALS: BP 109/58
[2016-12-27] MEDS ORDERED: D5 1/4NS w/KCl 20mEq 1,000 ML IV SCH ×2 (13:00→22:01)
[2016-12-27] MEDS ORDERED: PCA HYDROmorphone 1mg/ml 30 ML IV PRN (14:00)
[2016-12-27 16:00] VITALS: BP 117/65
[2016-12-27] MEDS ORDERED: Sterile Water Irrig 1000ml IRRIG ONE (16:55)
[2016-12-27 20:00] VITALS: BP 119/70
[2016-12-28] VITALS: BP 121/74
[2016-12-28] MEDS: Ampicillin/Sulbactam Sod 3 GM in NS 110 ML IV SCH ×5 (00:22→23:19)
[2016-12-28] MEDS: metroNIDAZOLE 500mg 100 ML IV SCH ×3 (01:00→11:32)
[2016-12-28 04:00] VITALS: BP 138/76
[2016-12-28] MEDS: PCA shift volume MISC SCH ×2 (07:00→19:00)
[2016-12-28 07:44] LABS: HEMOLYSIS 8; IRON 41 ug/dL (37-145); TOTAL IRON BINDING CAPACITY 216 ug/dL (250-400)
[2016-12-28 08:00] VITALS: BP 137/75
[2016-12-28] MEDS: Dyna-Hex 2% Top Sol 8oz TOPIC SCH (08:05)
--- NOTE | 2016-12-28 09:12 | General Progress Note ---
Progress Note Progress Note AVSS Ambulated x [address] Minimal use of STOCK CHECKER Abdomen soft, only slightly distended, incision clean, stoma pink Urine 2009 (required Lasix 20mg IV yesterday) Kock pouch ileo 105 Iron 41 (37-145 B12 okay CBC,BMP - pending Imp. Ileus Iron deficiency Plan: Continue NPO continue Garcia (pelvic dissection) Venofer 100mg IV daily x 5 REED MORFIN December 28, 2016 09:12
[2016-12-28 09:23] LABS: BASOPHILS % (AUTO) 0.3 % (0.0-2.0); EOSINOPHILS % (AUTO) 0.5 % (0.0-3.0); LYMPHOCYTES % (AUTO) 9.3 % (20.0-45.0); MEAN CORPUSCULAR HEMOGLOBIN 31.8 PG (27.0-31.0); MEAN CORPUSCULAR HGB CONC 33.1 G/DL (32.0-36.0); MEAN CORPUSCULAR VOLUME 96 FL (80-99); MEAN PLATELET VOLUME 7.8 FL (6.5-10.1); MONOCYTES % (AUTO) 12.3 % (1.0-10.0); NEUTROPHILS % (AUTO) 77.6 % (45.0-75.0); PLATELET COUNT 129 K/UL (150-450); RED CELL DISTRIBUTION WIDTH 12.5 % (11.6-14.8); WHITE BLOOD COUNT 8.5 K/UL (4.8-10.8)
[2016-12-28 09:25] LABS: ANION GAP 11 (5-15); CALCIUM 7.9 mg/dL (8.6-10.2); CARBON DIOXIDE 28 mEQ/L (20-30); CHLORIDE 99 mEQ/L (98-107); CREATININE 0.8 mg/dL (0.5-0.9); HEMOLYSIS 8; POTASSIUM 3.8 mEQ/L (3.4-4.9); SODIUM 138 mEQ/L (135-145)
[2016-12-28] MEDS ORDERED: PCA HYDROmorphone 1mg/ml 30 ML IV PRN (10:00)
[2016-12-28] MEDS ORDERED: Rate Change PCA 1 Each MISC PRN (10:00)
[2016-12-28] MEDS ORDERED: DiphenhydrAMINE 50mg/ml Inj IVP PRN (10:00)
[2016-12-28] MEDS ORDERED: Naloxone 0.4mg/ml Inj IVP PRN (10:00)
[2016-12-28] MEDS: D5 1/4NS w/KCl 20mEq 1,000 ML IV SCH ×2 (11:51→23:19)
[2016-12-28 12:00] VITALS: BP 145/81
[2016-12-28 16:00] VITALS: BP 141/79
[2016-12-28 20:00] VITALS: BP 143/87
[2016-12-28] MEDS: Iron Sucrose 100 MG in NS 55 ML IVPB SCH (21:13)
[2016-12-29] VITALS: BP 142/77
[2016-12-29 04:00] VITALS: BP 145/82
[2016-12-29] MEDS: Ampicillin/Sulbactam Sod 3 GM in NS 110 ML IV SCH (06:17)
[2016-12-29] MEDS: PCA shift volume MISC SCH ×2 (07:11→19:16)
[2016-12-29 08:00] VITALS: BP 143/88
[2016-12-29] MEDS: Dyna-Hex 2% Top Sol 8oz TOPIC SCH (08:41)
[2016-12-29] MEDS ORDERED: Naloxone 0.4mg/ml Inj IVP PRN (09:13)
[2016-12-29] MEDS ORDERED: Rate Change PCA 1 Each MISC PRN (09:15)
--- NOTE | 2016-12-29 09:15 | General Progress Note ---
Progress Note Progress Note AVSS Feeling well. tolerated Venofer last night Abdomen mildly distended, soft, non-tender, healing nicely Urine 2825 Kock pouch ileo 220 Imp.Slowly resolving ileus Plan: D/C urinary Garcia D/C antibiotics labs in AM continue NPO REED MORFIN December 29, 2016 09:15
[2016-12-29] MEDS ORDERED: DiphenhydrAMINE 50mg/ml Inj IVP PRN (10:00)
[2016-12-29] MEDS ORDERED: PCA HYDROmorphone 1mg/ml 30 ML IV PRN (10:00)
[2016-12-29 12:00] VITALS: BP 153/87
[2016-12-29] MEDS: D5 1/4NS w/KCl 20mEq 1,000 ML IV SCH (13:22)
[2016-12-29] MEDS ORDERED: NS 550ML IV ONE (13:54)
[2016-12-29] MEDS ORDERED: Tubing IV Secondary IV ONE (13:54)
[2016-12-29 16:00] VITALS: BP 141/85
[2016-12-29 20:00] VITALS: BP 154/76
[2016-12-29] MEDS: Iron Sucrose 100 MG in NS 55 ML IVPB SCH (21:11)
[2016-12-30] VITALS (7 sets, daily range): BP systolic 132–169; BP diastolic 76–90
[2016-12-30] MEDS: D5 1/4NS w/KCl 20mEq 1,000 ML IV SCH ×2 (01:44→13:47)
[2016-12-30] MEDS: PCA shift volume MISC SCH ×2 (07:03→19:00)
[2016-12-30 07:37] LABS: BASOPHILS % (AUTO) 0.9 % (0.0-2.0); EOSINOPHILS % (AUTO) 2.4 % (0.0-3.0); LYMPHOCYTES % (AUTO) 8.5 % (20.0-45.0); MEAN CORPUSCULAR HEMOGLOBIN 33.1 PG (27.0-31.0); MEAN CORPUSCULAR HGB CONC 34.9 G/DL (32.0-36.0); MEAN CORPUSCULAR VOLUME 95 FL (80-99); MEAN PLATELET VOLUME 8.8 FL (6.5-10.1); MONOCYTES % (AUTO) 12.6 % (1.0-10.0); NEUTROPHILS % (AUTO) 75.7 % (45.0-75.0); PLATELET COUNT 141 K/UL (150-450); RED BLOOD COUNT 3.84 M/UL (4.20-5.40); RED CELL DISTRIBUTION WIDTH 12.2 % (11.6-14.8); WHITE BLOOD COUNT 7.6 K/UL (4.8-10.8)
[2016-12-30 08:01] LABS: ANION GAP 14 (5-15); CALCIUM 8.3 mg/dL (8.6-10.2); CARBON DIOXIDE 26 mEQ/L (20-30); CHLORIDE 100 mEQ/L (98-107); CREATININE 0.6 mg/dL (0.5-0.9); HEMOLYSIS 24; POTASSIUM 3.6 mEQ/L (3.4-4.9); SODIUM 140 mEQ/L (135-145)
[2016-12-30] MEDS: Dyna-Hex 2% Top Sol 8oz TOPIC SCH (08:17)
[2016-12-30] MEDS ORDERED: PCA HYDROmorphone 1mg/ml 30 ML IV PRN (10:00)
[2016-12-30] MEDS ORDERED: Naloxone 0.4mg/ml Inj IVP PRN (10:28)
[2016-12-30] MEDS ORDERED: Rate Change PCA 1 Each MISC PRN (10:30)
--- NOTE | 2016-12-30 10:30 | General Progress Note ---
Progress Note Progress Note AVSS Voiding well without Garcia. 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
[2016-12-30] MEDS ORDERED: DiphenhydrAMINE 50mg/ml Inj IVP PRN (16:00)
[2016-12-30] MEDS ORDERED: NS 275ml ONE (17:16)
[2016-12-30] MEDS: Iron Sucrose 100 MG in NS 55 ML IVPB SCH (20:43)
[2016-12-31] VITALS: BP 144/84
[2016-12-31] MEDS: D5 1/4NS w/KCl 20mEq 1,000 ML IV SCH (01:42)
[2016-12-31 04:00] VITALS: BP 149/93
[2016-12-31] MEDS: PCA shift volume MISC SCH (07:23)
[2016-12-31 08:00] VITALS: BP 135/77
[2016-12-31] MEDS ORDERED: Fluconazole 100mg tab ORAL STA (09:14)
[2016-12-31] MEDS ORDERED: Ascorbic Acid 500mg tab ORAL PRN (09:15)
--- NOTE | 2016-12-31 09:28 | General Progress Note ---
Progress Note Progress Note AVSS Tolerating clear liquid diet. Has oral thrush and vaginal/vulva luisito rash/pruritus Abdomen soft, healing nicely, non-distended I&O satisfactory. Imp. 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
[2016-12-31] MEDS: Nystatin Susp 500,000 units/5ml ORAL SCH ×4 (10:20→21:31)
[2016-12-31 12:00] VITALS: BP 146/78
[2016-12-31 16:00] VITALS: BP 150/86
[2016-12-31] MEDS: Norco 5mg/325mg tab ORAL PRN ×2 (16:12→21:38)
[2016-12-31] MEDS ORDERED: D5 1/4NS w/KCl 20mEq 1,000 ML IV SCH (18:15)
[2016-12-31 20:00] VITALS: BP 132/87
[2016-12-31] MEDS: Iron Sucrose 100 MG in NS 55 ML IVPB SCH (21:32)
[2016-12-31] MEDS: MICONAZOLE VAG VAGIN SCH (21:32)
[2016-12-31] MEDS: Dyna-Hex 2% Top Sol 8oz TOPIC SCH (21:35)
[2017-01-01 00:27] VITALS: BP 133/75
[2017-01-01 04:33] VITALS: BP 134/78
[2017-01-01 06:55] LABS: BASOPHILS % (AUTO) 1.7 % (0.0-2.0); EOSINOPHILS % (AUTO) 4.2 % (0.0-3.0); LYMPHOCYTES % (AUTO) 8.9 % (20.0-45.0); MEAN CORPUSCULAR HEMOGLOBIN 31.9 PG (27.0-31.0); MEAN CORPUSCULAR HGB CONC 33.5 G/DL (32.0-36.0); MEAN CORPUSCULAR VOLUME 95 FL (80-99); MEAN PLATELET VOLUME 7.1 FL (6.5-10.1); MONOCYTES % (AUTO) 13.2 % (1.0-10.0); PLATELET COUNT 153 K/UL (150-450); RED BLOOD COUNT 4.01 M/UL (4.20-5.40); RED CELL DISTRIBUTION WIDTH 12.3 % (11.6-14.8); WHITE BLOOD COUNT 7.9 K/UL (4.8-10.8)
[2017-01-01 07:21] LABS: ANION GAP 12 (5-15); CALCIUM 8.5 mg/dL (8.6-10.2); CARBON DIOXIDE 27 mEQ/L (20-30); CHLORIDE 102 mEQ/L (98-107); CREATININE 0.7 mg/dL (0.5-0.9); HEMOLYSIS 3; POTASSIUM 3.5 mEQ/L (3.4-4.9); SODIUM 141 mEQ/L (135-145)
[2017-01-01 08:00] VITALS: BP 139/84
--- NOTE | 2017-01-01 08:44 | General Progress Note ---
Progress Note Progress Note AVSS tolerating full liquid diet. Occasional Orick for incisional pain. Thrush and vaginal luisito much improved Abdomen soft, flat, healing well Urine 3400 Kock Pouch ileo 950 WBC 7800 Hgb 12.8 BMP - wnl; Imp. Improving Plan: BCIR low residue diet Maintain continuous drainage of Kock Pouch REED MORFIN January 01, 2017 08:44
[2017-01-01] MEDS: Nystatin Susp 500,000 units/5ml ORAL SCH ×4 (09:10→22:27)
[2017-01-01] MEDS ORDERED: LORazepam 1mg tab SL PRN ×2 (09:15→21:00)
[2017-01-01] MEDS: Norco 5mg/325mg tab ORAL PRN ×2 (10:59→18:23)
[2017-01-01 12:00] VITALS: BP 142/77
[2017-01-01 16:00] VITALS: BP 129/74
[2017-01-01] MEDS ORDERED: NS 550ML IV ONE (17:10)
[2017-01-01] MEDS ORDERED: Tubing IV Secondary IV ONE (17:10)
[2017-01-01] MEDS: Dyna-Hex 2% Top Sol 8oz TOPIC SCH (18:24)
[2017-01-01 20:11] VITALS: BP 150/76
[2017-01-01] MEDS: Iron Sucrose 100 MG in NS 55 ML IVPB SCH (22:27)
[2017-01-01] MEDS: MICONAZOLE VAG VAGIN SCH (23:36)
[2017-01-02 00:02] VITALS: BP 138/83
[2017-01-02 08:00] VITALS: BP 136/78
[2017-01-02] MEDS: Dyna-Hex 2% Top Sol 8oz TOPIC SCH (08:17)
[2017-01-02] MEDS: Nystatin Susp 500,000 units/5ml ORAL SCH ×4 (08:17→22:11)
[2017-01-02] MEDS: Norco 5mg/325mg tab ORAL PRN ×2 (09:21→17:06)
--- NOTE | 2017-01-02 11:47 | General Progress Note ---
Progress Note Progress Note AVSS. Tolerating BCIR low residue diet. Thrush and vaginal luisito much improved. Abdomen soft, healing nicely Urine 2700 Kock Pouch ileo 850 Imp. doing well Plan: In AM will remove Kock Pouch catheter and begin RN supervised self- intubations REED MORFIN January 02, 2017 11:47
[2017-01-02 12:00] VITALS: BP 144/78
[2017-01-02 15:55] VITALS: BP 127/76
[2017-01-02 20:00] VITALS: BP 141/82
[2017-01-02] MEDS: MICONAZOLE VAG VAGIN SCH (22:11)
[2017-01-03] VITALS: BP 137/76
[2017-01-03] MEDS: Norco 5mg/325mg tab ORAL PRN ×2 (00:46→20:54)
[2017-01-03 04:00] VITALS: BP 126/76
[2017-01-03 08:00] VITALS: BP 117/61
--- NOTE | 2017-01-03 09:10 | General Progress Note ---
Progress Note Progress Note Doing well and tolerating BCIR diet (70% of meals eaten). Thrush resolved but still has perineal /vulva pruritus and rash Abdomen soft. Davidson removed and steristrips applied Urine 3750 Kock Pouch ileo 845 Ileo catheter removed - reinserts readily Imp. Improved Plan: RN supervised Kock Pouch self-intubations q3h am to hs and prn Provide discharge supplies Diflucan 150mg po STAT Continue I&O; D/C PIC line REED MORFIN Jan 03, 2017 09:10
[2017-01-03] MEDS: Nystatin Susp 500,000 units/5ml ORAL SCH ×4 (09:32→21:57)
[2017-01-03] MEDS: Dyna-Hex 2% Top Sol 8oz TOPIC SCH (09:32)
[2017-01-03] MEDS ORDERED: Fluconazole 100mg tab ORAL STA (09:37)
[2017-01-03 12:00] VITALS: BP 146/59
[2017-01-03 16:05] VITALS: BP 154/89
[2017-01-03 20:00] VITALS: BP 148/93
[2017-01-03] MEDS: MICONAZOLE VAG VAGIN SCH (21:54)
[2017-01-04 04:00] VITALS: BP 137/76
[2017-01-04 07:55] VITALS: BP 117/53
--- NOTE | 2017-01-04 08:05 | General Progress Note ---
Progress Note Progress Note No difficulty intubating Kock Pouch with 30Fr Medena catheter Abdomen soft, well healed incision and stoma Urine 2325 Kock Pouch ileo 720 Imp. doing well Plan: Discharge Rx [place] #30 Full supplies/limitations/instructions provided/discussed F/U office 01/07 and REED Chinchilla Jan 04, 2017 08:05
[2017-01-04] MEDS ORDERED: MICONAZOLE 745 G1 VG (08:12)
[2017-01-04] MEDS ORDERED: NS 275ml ONE (08:29)
[2017-01-04] MEDS ORDERED: Tubing IV Secondary IV ONE (08:29)
[2017-01-04] MEDS ORDERED: NS Irrig 1000ml ONE (08:29)
--- NOTE | 2017-01-16 14:33 | Discharge Summary ---
Discharge Summary Hospital Course Date of Admission December 25, 2016 at 08:52 Date of Discharge Jan 04, 2017 at 08:30 Admitting Diagnosis Malfunctioning Kock Pouch HPI Kacy Jones is a 76 year old female who was admitted on December 25, 2016 at 08: 52 for Malfunctioning Kock Pouch and surgery laparotomy and revision of Kock Pouch stoma Procedures 12/26/16 dr Cooney Laparotomy with revision of Kock pouch stoma and access segment. 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 , later discontinue Venofer x 1 tolerated well HH stable continuous drainage of Kock pouch continent ileostomy Garcia dc voided freely noted oral thrush and vaginal/vulvar Mona rash and pruritis started on Diflucan and Nystatin, subsequently improved started on clear liquid diet and advanced slowly as tolerated, was able to tolerate low residue diet 01/03 Kock pouch catheter removed, started on RN supervised self intubation, on 01/03 monica removed, steri strips applied , incisiion clean and dry on 01/04 cleared for discharge scripts for analgesics and home supples no difficulties intubating the pouch pain controlled, incision clean and dry good ileostomy output, voided freely, tolerated diet, afebrile, no leucocytosis ambulates DISCHARGE DIAGNOSES 1. 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 History of colon cancer. 3. Status post multiple abdominal operations. 3.1. 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 3.2. 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 Total abdominal hysterectomy and bilateral salpingo-oophorectomy in 1997 3.4. Laparoscopic cholecystectomy in 2014. 3.5 .Laparotomy with revision of Kock pouch stoma and access segment 12/26/2016 4. Oral thrush 5. Vaginal/vulvar Mona Discharge Medications Continued Medications: Miconazole Nitrate (Miconazole 7) 45 Gm Cream.appl 45 GM VG, #4 [Vit B12/Folic Acid] () 1000 MCG INJ ONCE A MONTH Discontinued Medications: Ibuprofen* (Motrin*) 400 Mg Tablet 400 MG ORAL Q8H, #30 TAB 0 Refills Discharge Condition Upon Discharge: stable Discharge Disposition Patient was discharged to Home (01) Discharge Diagnoses: Discharge Instructions Discharge Instructions Special Instructions I have been assigned to complete a D/C Summary on this account. I was not involved in the patient management Samantha Morales NP ([place]) Jan 16, 2017 14:33
== END 2017-01-04 08:30 | disposition home or self-care (01) | DRG 348 ==
LOC: 3E 08:52
PROC: B548ZZA Ultrasonography of Superior Vena Cava, Guidance (ICD-10-PCS; principal; 2016-12-26 11:00)
PROC: 02HV33Z Insertion of Infusion Device into Superior Vena Cava, Percutaneous Approach (ICD-10-PCS; principal; 2016-12-26 11:00)
PROC: 0WQFXZ2 Repair Abdominal Wall, Stoma, External Approach (ICD-10-PCS; principal; 2016-12-26 11:00)
DX: K94.13 Enterostomy malfunction (principal); K56.7 Ileus, unspecified; B37.0 Candidal stomatitis; K86.2 Cyst of pancreas; K76.89 Other specified diseases of liver; Z85.038 Personal history of other malignant neoplasm of large intestine; B37.3 Candidiasis of vulva and vagina; D50.9 Iron deficiency anemia, unspecified
CPT/HCPCS: 36415; 36569; 71010; 76937; 80048; 80053; 81003; 82248; 82607; 82728; 83540; 83550; 85007; 85025; 85610; 85730; 86850; 86900; 86901; 93005; 94003; 94150; 94760; J2250; J2405; J2710; J2765